=== PATIENT | male | born 1965 | race Caucasian/White ===

== ENCOUNTER → 2016-07-14 | Outpatient (CLI) | payer OTHER ==
[~2016-07-14] MED LIST: MECL25CH PO
== END ==
LOC: M LAB 12:26
PROVIDERS: ATTEND Family Medicine
DX: Z13.89 Encounter for screening for other disorder (principal)

== ENCOUNTER → 2016-12-07 | Outpatient (CLI) | payer OTHER ==
[2016-12-07 12:57] LABS: FOLATE 15.2 NG/ML (>5.4)
== END ==
LOC: M LAB 11:10
PROVIDERS: ATTEND Family Medicine
DX: G60.9 Hereditary and idiopathic neuropathy, unspecified (principal)

== ENCOUNTER → 2018-09-05 | Outpatient (REF) | payer OTHER ==
[~2018-09-05] MED LIST changes: +MECL1CHW2 PO; -MECL25CH PO
== END ==
LOC: M SFHCLERA 12:20
PROVIDERS: ATTEND Nurse Practitioner Family
DX: R53.81 Other malaise (principal)

== ENCOUNTER → 2018-12-10 | Outpatient (CLI) | payer OTHER, SELFPAY ==
[~2018-12-10] MED LIST changes: +MECL1CHW PO; -MECL1CHW2 PO
[2018-12-10 14:45] LABS: BASO % 0.4 % (0.0-1.0); EOS # 0.2 10^3/uL (0.0-0.50); EOS % 2.4 % (0.0-3.0); HEMATOCRIT 41.7 % (42.0-52.0); HEMOGLOBIN 14.2 g/dl (13.5-17.5); LYMPH # 2.3 10^3/uL (1.5-4.5); LYMPH % 35.1 % (24.0-44.0); MEAN CORPUSCULAR HEMOGLOBIN 33.7 pg (27.0-33.0); MEAN CORPUSCULAR HGB CONC 34.1 g/dl (32.0-36.5); MONO # 0.4 10^3/uL (0.0-0.8); MONO % 6.3 % (0.0-5.0); NEUTROPHILS # 3.7 10^3/uL (1.8-7.7); NEUTROPHILS % 55.7 % (36.0-66.0); PLATELET COUNT, AUTOMATED 295 10^3/uL (150-450); RED BLOOD COUNT 4.21 10^6/uL (4.30-6.10); WHITE BLOOD COUNT 6.7 10^3/uL (4.0-10.0)
[2018-12-10 15:07] LABS: ALBUMIN 3.6 GM/DL (3.2-5.2); ALT/SGPT 23 U/L (12-78); BILIRUBIN,TOTAL 0.2 MG/DL (0.2-1.0); BLOOD UREA NITROGEN 18 MG/DL (7-18); CALCIUM LEVEL 8.9 MG/DL (8.5-10.1); CARBON DIOXIDE LEVEL 27 MEQ/L (21-32); CHLORIDE LEVEL 110 MEQ/L (98-107); CREATININE FOR GFR 0.62 MG/DL (0.70-1.30); FREE T3 3.1 PG/ML (2.2-4.0); FREE T4 0.97 NG/DL (0.76-1.46); GLOMERULAR FILTRATION RATE > 60.0 (>56); GLUCOSE, FASTING 90 MG/DL (70-100); POTASSIUM SERUM 4.3 MEQ/L (3.5-5.1); RHEUMATOID FACTOR QUANT < 10.0 IU/ML (<15.0); SODIUM LEVEL 141 MEQ/L (136-145); THYROXINE (T4) 9.9 UG/DL (4.5-12.0); TOTAL PROTEIN 6.6 GM/DL (6.4-8.2)
[2018-12-10 15:09] LABS: TOTAL 25(OH) VITAMIN D 23.1 NG/ML (30.0-100.0); TOTAL T3 119.8 NG/DL (60.0-181.0); VITAMIN B12 LEVEL 480 PG/ML (247-911)
[2018-12-12 15:46] LABS: ANTINUCLEAR ANTIBODIES DIRECT Negative (Negative); EBV AB TO NUCLEAR ANTIGEN >600.0 U/mL (0.0-17.9); EBV VIRAL CAPSID AG IgG >600.0 U/mL (0.0-17.9); EBV VIRAL CAPSID AG IgM <36.0 U/mL (0.0-35.9); HOMOCYST(E)INE SERUM 8.6 umol/L (0.0-15.0); SEX HORMONE BINDING GLOBULIN 78.5 nmol/L (19.3-76.4); TESTOSTERONE FREE (DIRECT) 16.9 pg/mL (7.2-24.0); VITAMIN D 1,25 DIHYDROXY 44.4 pg/mL (19.9-79.3)
== END ==
LOC: M LRY 12:48
PROVIDERS: ATTEND Dermatology
DX: E53.9 Vitamin B deficiency, unspecified (principal); E55.9 Vitamin D deficiency, unspecified; R68.82 Decreased libido; E07.9 Disorder of thyroid, unspecified; R53.83 Other fatigue

== ENCOUNTER → 2018-12-12 | Outpatient (REF) | payer OTHER, SELFPAY | LOC: M LABDRWAD 11:47 | PROVIDERS: ATTEND Dermatology | DX: E53.9 Vitamin B deficiency, unspecified (principal); E55.9 Vitamin D deficiency, unspecified; R68.82 Decreased libido; R53.83 Other fatigue; E07.9 Disorder of thyroid, unspecified ==